=== PATIENT | female | born 1955 | race Caucasian/White ===

== ENCOUNTER 2019-03-14 12:03 | Observation (INO) ==
[2019-03-14] MEDS ORDERED: GOLYTELY PO ONE (14:00)
[2019-03-14] MEDS ORDERED: ZOFRAN IV PRN (14:23)
--- NOTE | 2019-03-14 15:31 | EKG Report ---
Test Performed on : 03/14/2019 3:20:44 PM Test Reason : tachycardia Blood Pressure : / mmHG Vent. Rate : 103 BPM Atrial Rate : 103 BPM P-R Int : 128 ms QRS Dur : 122 ms QT Int : 374 ms P-R-T Axes : 047 046 028 degrees QTc Int : 489 ms Sinus tachycardia. Right bundle branch block Abnormal ECG When compared with ECG of 11-JUL-2018 07:04, No significant change was found Confirmed by Salomon MICHELLE, Jose Luciano ([id number]) on 03/15/2019 9:06:25 AM
--- NOTE | 2019-03-14 15:40 | HISTORY AND PHYSICAL ---
PRIMARY CARE PHYSICIAN: Dr. Burt. DRY MILL OPERATOR: Dr. Carter. CHIEF COMPLAINT: A persistent cough over the past 2 to 3 weeks that continues to worsen, and is also noted to be tachycardic. HISTORY OF PRESENTING ILLNESS: This is a 63-year-old female, who presents to [facility] from a direct admit from Dr. Carter's office, her GI doctor. She was scheduled for an outpatient colonoscopy, but was noted in her preop to be tachycardic at 113. She has had a persistent cough over the past 2 to 3 weeks. Has been on steroids for the past week. Saw her primary care doctor, Dr. Burt, today who apparently stopped her MAYUR inhibitor just today. So, she is being admitted to be medically cleared for a colonoscopy in the a.m. PAST MEDICAL HISTORY: Diabetes type 2, osteoarthritis, hypertension, hypothyroidism. PAST SURGICAL HISTORY: A left foot surgery x2, hysterectomy, a bladder tack, and an abdominal hernia repair. FAMILY HISTORY: Mother had Alzheimer's. Father had an [place]. SOCIAL HISTORY: She currently lives alone. Denies any tobacco, alcohol use, and no illicit drug use. ALLERGIES: Codeine, hydrocodone, penicillin. HOME MEDICATIONS: A current list will need to be obtained, reconciled, reviewed and restarted as appropriate. I have placed an order for nursing to update and confirm home medications. LABORATORY DATA: We are going to obtain a CBC, BMP, UA, two-view chest x-ray now. REVIEW OF SYSTEMS: She denied any fever, chills, blurred vision, dizziness. She denied any chest pain. She has had a persistent nonproductive dry cough. Denied any shortness of breath. She is noted to be tachycardic, but that has been a chronic problem for this patient for quite awhile. Her EKG in November of 2006 showed sinus tachycardia at 103. She denied any abdominal pain, constipation, diarrhea, burning or hurting with urination. PHYSICAL EXAMINATION: VITAL SIGNS: On arrival she had a temperature of 98.4 degrees, pulse 113, respirations 24 blood pressure 159/86, satting 97% on room air. GENERAL: This is a 63-year-old female, who is sitting up in the bed and answers questions appropriately. HENT: Normocephalic, atraumatic. Normal ENT inspection. Oropharynx and nares are clear. EYES: Pupils are equal, round, reactive to light. Extraocular movements are intact. NECK: Normal inspection. Normal range of motion. LUNGS: With decreased breath sounds to bilateral lower lobes. Equal lung expansion. Chest wall movement noted. HEART: She is still noted to be sinus tachycardia, but no murmurs, rubs, or gallops. ABDOMEN: Soft, nontender, nondistended. Bowel sounds are present x4 quadrants. MUSCULOSKELETAL: She has 5/5 strength x4 extremities. NEUROLOGICAL: The cranial nerves 2-12 appear grossly intact. ASSESSMENT: 1. Persistent cough. 2. Tachycardia. 3. Diabetes type 2. 4. Hypertension. PLAN: She was admitted to the surgical unit at [facility], placed on telemetry, clear liquid diet, n.p.o. after midnight. We consulted Dr. Carter, and she will receive her prep for colonoscopy in the a.m. We are going to check a CBC and BMP now, urinalysis and a 2-view chest x- ray. She will begin GoLYTELY [address] on normal saline at 75 mL an hour, Tylenol 650 mg p.o. q. 6 hours p.r.n., Zofran 4 mg IV q. 4 hours p.r.n. We will update and confirm home medications as previously noted. Further orders after seen by attending and by network relations consultant. Dictated by MARY Layton for Mickey Kennedy MD cc: MD Shaila Carreon CRNP Alexis R. Penot, MD
[2019-03-14 15:55] LABS: BASO# 0.04 X1000 (0.0-0.2); BASO% 0.5 % (0.0-0.8); EOS# 0.13 X1000 (0.0-0.7); EOS% 1.5 % (0.0-10.0); HEMOGLOBIN 9.6 g/dL (12.0-16.0); IMM GRAN# 0.28 X1000 (0.0-0.04); IMM GRAN% 3.2 % (0.0-0.5); LYMPH# 2.51 X1000 (1.2-3.4); LYMPH% 28.5 % (20.5-51.1); MCH 26.4 PG (27-31); MCV 88.2 FL (81-99); MONO# 0.61 X1000 (0.11-0.59); MONO% 6.9 % (1.7-9.3); MPV 10.8 FL (7.4-10.4); NEUT# 5.23 X1000 (1.4-6.5); NEUT% 59.4 % (42.2-75.2); PLT 212 X1000 (130-400); RBC 3.63 XMIL (4.2-5.4); RDW 16.8 % (11.5-14.5)
[2019-03-14] MEDS: NS 1,000 ML IV SCH (16:06)
[2019-03-14 16:18] LABS: AGAP 12; BUN 19 mg/dL (8-22); CALCIUM 8.8 mg/dL (8.8-10.2); CHLORIDE 101 mmol/L (98-107); COSMO 278; CREATININE 0.5 mg/dL (0.5-0.9); ESTIMATED GFR > 60; GLUCOSE 93 mg/dL (70-104); POTASSIUM 4.1 mmol/L (3.5-5.1); SODIUM 138 mmol/L (136-145); TCO2 25 mmol/L (25-35)
[2019-03-14 16:20] LABS: URINE SOURCE CLEAN CATCH
[2019-03-14 16:26] LABS: FREE T4 1.25 ng/dL (0.93-1.70); TSH 1.66 uIUmL (0.27-4.20)
[2019-03-14 16:26] LABS: BILIRUBIN URINE NEGATIVE (NEGATIVE); BLOOD URINE NEGATIVE (NEGATIVE); COLOR YELLOW; GLUCOSE URINE NEGATIVE (NEGATIVE); KETONE URINE NEGATIVE (NEGATIVE); LEUKOCYTES URINE NEGATIVE (NEGATIVE); NITRITE URINE NEGATIVE (NEGATIVE); PH URINE 6.5; PROTEIN URINE NEGATIVE (NEGATIVE); SP GRAVITY URINE 1.011; TURBIDITY URINE CLEAR (CLEAR); UROBILINOGEN URINE NORMAL (NORMAL)
[2019-03-14 16:27] LABS: UR EPITHELIAL CELLS <10 /HPF (<10); URINE BACTERIA NEGATIVE /HPF; URINE RBC <10 /HPF (<10); URINE WBC <10 /HPF (<10)
--- NOTE | 2019-03-14 17:49 | Diag Imaging Result Doc PS360 ---
CHEST-2 VIEWS - 03/14/2019 INDICATION: cough COMPARISON: 07/10/2018 FINDINGS: The lungs are normally expanded and clear. Heart size and mediastinal contours are normal. No pneumothorax or pleural effusion. IMPRESSION: Negative exam. Electronically signed by Jerzy Brooks 03/14/2019 5:47 PM
[2019-03-14] MEDS: LOPRESSOR PO SCH (21:03)
[2019-03-15] MEDS: TYLENOL PO PRN ×2 (05:02→13:38)
[2019-03-15] MEDS: NS 1,000 ML IV SCH (06:26)
[2019-03-15 07:28] LABS: BASO# 0.04 X1000 (0.0-0.2); BASO% 0.5 % (0.0-0.8); EOS# 0.16 X1000 (0.0-0.7); EOS% 2.1 % (0.0-10.0); HEMATOCRIT 29.3 % (37.0-47.0); HEMOGLOBIN 8.7 g/dL (12.0-16.0); IMM GRAN# 0.15 X1000 (0.0-0.04); LYMPH# 2.94 X1000 (1.2-3.4); LYMPH% 38.3 % (20.5-51.1); MCH 26.4 PG (27-31); MCHC 29.7 g/dL (33-37); MCV 88.8 FL (81-99); MONO# 0.67 X1000 (0.11-0.59); MONO% 8.7 % (1.7-9.3); MPV 10.5 FL (7.4-10.4); NEUT# 3.71 X1000 (1.4-6.5); NEUT% 48.4 % (42.2-75.2); PLT 173 X1000 (130-400); RDW 16.8 % (11.5-14.5); WBC 7.67 X1000 (4.8-10.8)
[2019-03-15 07:48] LABS: AGAP 11; BUN 13 mg/dL (8-22); CALCIUM 7.9 mg/dL (8.8-10.2); CHLORIDE 101 mmol/L (98-107); COSMO 277; CREATININE 0.6 mg/dL (0.5-0.9); ESTIMATED GFR > 60; GLUCOSE 95 mg/dL (70-104); POTASSIUM 3.3 mmol/L (3.5-5.1); SODIUM 139 mmol/L (136-145); TCO2 27 mmol/L (25-35)
[2019-03-15] MEDS ORDERED: DIPRIVAN 1% ONE ×4 (08:28→09:33)
[2019-03-15] MEDS ORDERED: XYLOCAINE-MPF 2% ONE (08:29)
[2019-03-15] MEDS ORDERED: KLOR-CON PO ONE (09:52)
[2019-03-15 10:15] LABS: RETIC% 4.33 % (0.8-2.1); RETIC-HE 30.8 PG (28.2-36.6)
[2019-03-15 10:25] LABS: IRON SATURATION 6 %; TIBC 393 ug/dL; TOTAL IRON 25 ug/dL (49-151); UNBOUND IRON 368 ug/dL (112-346)
[2019-03-15] MEDS ORDERED: ICAR-C PO SCH (10:45)
[2019-03-15] MEDS ORDERED: PERIDEX MT SCH (11:00)
[2019-03-15] MEDS ORDERED: FERRLECIT 125 MG in NS 100 ML IV ONE (11:00)
[2019-03-15 11:16] LABS: FERRITIN 19 ng/mL (13-150)
--- NOTE | 2019-03-15 12:09 | Diag Imaging Result Doc PS360 ---
EXAM: CT THORAX W/CONTRAST INDICATION: tachycardia TECHNIQUE: This exam was performed using automated exposure control, adjustment of mA or kV according to patient size, and/or use of iterative reconstruction technique. COMPARISON: None. FINDINGS: There are several tiny noncalcified nodules bilaterally with the largest measuring up to 5 mm. Statistically, these very likely represent granulomata. The nodules that were included on a prior CT of the abdomen dated 02/05/2017 are stable. There is mild subsegmental atelectasis at the lung bases. The lungs are clear, otherwise. There is no pneumothorax. There is no pleural fluid collection. There is no evidence of significant mediastinal or hilar lymphadenopathy. There is no cardiomegaly. Limited views of the upper abdomen reveals at least moderate hepatic steatosis. IMPRESSION: 1.Mild subsegmental atelectasis at the lung bases. 2.Several miniscule noncalcified nodules scattered bilaterally as described above. 3.Incidental hepatic steatosis. Electronically signed by Alex Maciel 03/15/2019 12:06 PM
--- NOTE | 2019-03-15 12:49 | GASTROENTEROLOGY CONSULTATION ---
DATE: 03/15/2019 REASON FOR CONSULTATION: Anemia. HISTORY OF PRESENT ILLNESS: Mrs Yennifer Cox is a 63-year-old woman with past medical history of noninsulin dependent diabetes type 2, hypertension, hypothyroidism, osteoarthritis, who presented as a referral from Dr. Burt to the GI Clinic yesterday for evaluation and treatment of anemia. During her clinic, she reported having a cough for the last couple of months with associated pleuritic chest pain, dyspnea on exertion, wheezing, and hoarseness. She denies any dysphagia. She denies any rectal bleeding, hemoptysis, melena, or hematemesis. She was started on iron and has since had dark stools. No weight loss. She says she has not been able to lay flat because it causes her to cough more. She does have some indigestion depending on her diet. No reflux. No prior EGD. She had a colonoscopy about [address] Turner that was normal. She does have a history of diverticulitis. She takes aspirin 81 mg and Mobic once daily. No prior abdominal surgeries. No family history of GI malignancies. No dizziness, lightheadedness, or chest pain. She was seen in the ED at [facility] on 03/11/2019 and was discharged with diagnosis of acute bronchitis and anemia treated with prednisone and azithromycin without improvement. She had echocardiogram 2 days ago that was reportedly normal per her PCP. In the clinic, she was noted to be tachycardic and tachypneic. Her O2 saturation and blood pressure were normal. The decision was made to admit her directly for evaluation of her anemia and her tachycardia, respiratory distress. PAST MEDICAL HISTORY: As per HPI. PAST SURGICAL HISTORY: No prior abdominal surgeries. MEDICATIONS: 1. Furosemide. 2. Iron. 3. Ellipta. 4. Levothyroxine. 5. Progesterone. 6. Nexium. 7. Losartan. 8. Lactulose. 9. Montelukast. 10. Meloxicam. 11. Metformin. Of note, patient was seen by Dr. Burt yesterday morning and her ramipril was discontinued secondary to concern for MAYUR cough. ALLERGIES: No known drug allergies. SOCIAL HISTORY: The patient is a nonsmoker. No alcohol or drug. FAMILY HISTORY: No family history of GI malignancies. REVIEW OF SYSTEMS: As per HPI, otherwise 12 point review of systems negative. PHYSICAL EXAMINATION: Vital Signs: Temperature 97.7 degrees, heart rate of 100, respiratory rate 18, blood pressure 155/79, O2 saturation 99% on room air. General: Patient is awake, alert, oriented, no acute distress. She is having cough that is dry and nonproductive on room air. HEENT: Sclerae anicteric. Moist mucous membranes. No oral ulcers. Extraocular motor intact. Neck: Supple. No JVD. Cardiac: Tachycardic. Regular. No murmurs. Lungs: Clear to auscultation bilaterally. No wheezing. Abdomen: Soft, nontender, nondistended. Normoactive bowel sounds. No rebound or guarding. Extremities: No clubbing, cyanosis, or edema. Neurologic: Nonfocal. LABORATORY DATA AND DIAGNOSTICS: White count is 7.6, hemoglobin 8.7 from 9.6 yesterday, platelets 173,000. Sodium 134, potassium 3.3, chloride 101, bicarb 27, BUN 13, creatinine 0.6, glucose of 95. UA is negative. Chest x-ray yesterday shows normal exam. EKG shows a sinus tachycardia, right bundle branch block, no significant changes from prior. The patient had a nuclear stress test on 02/26/2019 that was normal. ASSESSMENT AND PLAN: 1. Ms Yennifer Cox is a 63-year-old woman who presented yesterday with dyspnea, tachycardia, and new onset anemia concerning for GI bleed. The patient was admitted for expedited workup of her anemia as well as evaluation and treatment of her cough and shortness of breath. She is currently on a beta isak for her tachycardia. She was prepped overnight for a plan of EGD and colonoscopy this morning. She drank 1/2 of her prep and reports clear liquid stools. She is currently n.p.o. and receiving IV fluids at 75 mL an hour of normal saline. 2. Anemia. We will check iron studies, B12 and folate. Trend hemoglobin and hematocrit daily. Transfuse as needed to maintain a hemoglobin between 7 and 8. 3. Osteoarthritis. We will hold meloxicam and NSAIDs and aspirin for now given concern for GI bleeding. 4. Hypertension. Continue home medications. Avoid MAYUR inhibitors for now. 5. Shortness of breath. Supplemental O2 as needed. 6. Diabetes. Patient is getting glucometer checks, holding metformin. Recommend sliding scale insulin as needed. Normal glycemic currently. Thank you for this consult. We will follow with you. Please call with any questions or concerns.
--- NOTE | 2019-03-15 13:27 | OPERATIVE NOTE ---
PROCEDURE DATE: 03/15/2019 PROCEDURE: EGD and colonoscopy PROVIDER: Teodoro Carter MD INDICATIONS: Anemia. MEDICATIONS: Monitored Anesthesia Care. DESCRIPTION OF PROCEDURE: Prior to the procedure, a history and physical was performed. Patient's medications and allergies were reviewed. The patient's tolerance to previous anesthesia was also reviewed. The risks and benefits of the procedure and sedation options and risks were discussed with the patient. All questions were answered. Informed consent was obtained. After reviewing the risks and benefits, the patient was deemed in satisfactory condition to undergo the procedure. The endoscope was passed under direct visualization. Throughout the procedure, the patient's blood pressure, pulse and oxygen saturation are monitored continuously. The endoscope was introduced through the mouth and advanced to the second part of the duodenum. The upper GI endoscopy was accomplished without difficulty. The colonoscope was introduced through the anus and advanced to the terminal ileum identified by the appendiceal orifice and ileocecal valve. The colonoscopy was accomplished without difficulty. The quality of the prep was adequate. COMPLICATIONS: No immediate complications. ESTIMATED BLOOD LOSS: Minimal. FINDINGS: Normal esophagus. The Z-line was regular at 40 cm from the incisors. Stomach revealed minimal antral gastritis. Random biopsies were obtained to rule out H. pylori. The bulb and second portion of the duodenum were normal. Retroflexion in the stomach was unremarkable. There was moderate diverticula in the sigmoid colon. Terminal ileum revealed a linear superficial 1 cm ulcer. This was biopsied. There was no surrounding erythema. There were no other signs of inflammatory bowel disease. The remaining colon was unremarkable. Retroflexion in the rectum was unrevealing. IMPRESSION: Antral gastritis, biopsy, terminal ileum ulcer biopsy. This is suspected to be secondary to NSAID use. Sigmoid diverticula. RECOMMENDATIONS: Await pathology results. Avoid NSAIDs and aspirin as needed for secondary cardiac prophylaxis if required. Start oral Protonix 40 mg once daily. Check iron studies, B12, and folate. Recommend patient follow up in GI Clinic in 1 to 2 weeks. Please call with any questions or concerns. We will sign off.
[2019-03-15] MEDS: LOPRESSOR PO SCH (13:38)
[2019-03-15 15:06] VITALS: BP 145/66
--- NOTE | 2019-03-15 23:14 | DISCHARGE SUMMARY ---
ADMISSION DATE: 03/14/2019 DISCHARGE DATE: 03/15/2019 HOSPITAL COURSE: Discharge diagnosis of type 2 diabetes, persistent tachycardia. I do not have a cardiovascular or metabolic explanation aside anemia. I know we do not want to blame the anemia. It is not a profound anemia, but she is not orthostatic. There is no thyroid dysfunction. She had a stress test last month which was normal and reportedly an echocardiogram that was normal. She is anemic with iron-deficiency anemia. Hemoglobin and hematocrit were 9 and 32, and 8 and 29. She did have a serpiginous ulcer noted, associated with NSAIDs. She did undergo an EGD and colon per Dr. Carter, which showed gastritis and terminal ileal ulcer, likely due to NSAID. DISCHARGE MEDICATIONS: She was discharged on Nexium 40, Synthroid, Icar-C was a new medication, Toprol-XL 25 daily, Singulair 10, progesterone, metformin 500 daily, Lasix 20 daily, Cozaar 50 daily, and Anoro 1 puff daily. DISCHARGE CONDITION: Stable. DISCHARGE DIAGNOSES: 1. Symptomatic anemia with relative tachycardia. 2. Hypothyroidism. 3. Diabetes. PLAN: We will continue to follow closely. I would recommend that she get outpatient iron infusions. We did give her a dose of Ferralet while she was hospitalized, so we will continue to follow. cc: MD Juan Daniel Calzada MD Michael Kelso, MD
[2019-03-16] MEDS ORDERED: SYNTHROID PO SCH (07:00)
[2019-03-16] MEDS ORDERED: NEXIUM PO SCH (07:00)
[2019-03-16] MEDS ORDERED: ANORO ELLIPTA 62.5-25 MCG INH INH SCH (07:30)
[2019-03-16] MEDS ORDERED: FERROUS SULFATE PO SCH (09:00)
[2019-03-16] MEDS ORDERED: SINGULAIR PO SCH (09:00)
[2019-03-16] MEDS ORDERED: GLUCOPHAGE XR PO SCH (09:00)
[2019-03-16] MEDS ORDERED: LASIX PO SCH (09:00)
[2019-03-16] MEDS ORDERED: COZAAR PO SCH (09:00)
[2019-03-16] MEDS ORDERED: PROTONIX PO SCH (10:30)
== END 2019-03-15 17:51 | disposition home or self-care (01) ==
LOC: DIRADM 12:03 → SUATTDRO 12:03 → INTOOBSV 12:03 → 4N 13:07
PROVIDERS: ATTEND Internal Medicine
CPT/HCPCS: 71020; 71046; 71260; 80048; 81001; 82607; 82728; 82746; 83540; 83550; 84439; 84443; 84466; 85025; 85045; 88305; 88312; 88313; 93005; 93010; 93306; 94640; 94761; 94799; A9270; J2405; J2916; J7030; Q9967